=== PATIENT | female | born 1990 | race Caucasian/White ===

== ENCOUNTER 2019-01-07 13:59 | Emergency (ER) | payer MEDICAID ==
[~2019-01-07] VITALS: Ht 157.5 cm; Wt 56.8 kg
[2019-01-07] MEDS ORDERED: ibuprofen tablet 400 MG TABLET PO ONE (14:05)
--- NOTE | 2019-01-07 14:17 | NUR ---
PT MEDICATED FOR PAIN AND CURRENTLY WITH ANKLE ELEVATED AND ICE PACKS APPLIED.
[2019-01-07 15:08] VITALS: BP 113/65
== END 2019-01-07 15:25 | disposition home or self-care (01) ==
LOC: ER 14:00
DX: S93.491A Sprain of other ligament of right ankle, initial encounter (principal); X50.1XXA Overexertion from prolonged static or awkward postures, initial encounter; Y93.89 Activity, other specified; Y92.89 Other specified places as the place of occurrence of the external cause; Y99.8 Other external cause status
CPT/HCPCS: 29515; 73610; 99284

== ENCOUNTER 2019-03-12 20:50 | Emergency (ER) | payer MEDICAID ==
[~2019-03-12] VITALS: Ht 157.5 cm; Wt 54.0 kg
[2019-03-12] MEDS ORDERED: ketorolac tromethamine 15mg/ml inj. IM ONE (21:15)
[2019-03-12] MEDS ORDERED: orphenadrine citrate 60mg/2ml inj. IM ONE (21:15)
[2019-03-12 21:18] LABS: URINE HCG NEGATIVE (NEG)
[2019-03-12 21:22] LABS: CLARITY,URINE CLEAR (Clear); COLOR,URINE YELLOW (Yellow); GLUCOSE, URINE NEGATIVE (Neg); KETONES,URINE NEGATIVE (Neg); LEUKOCYTE ESTERASE ,URINE SMALL (Neg); NITRITES, URINE NEGATIVE (Neg); OCCULT BLOOD,URINE MODERATE (Neg); PROTEIN,URINE NEGATIVE (Neg); UROBILINOGEN,URINE 0.2 E.U/dL (0.2-1.0)
[2019-03-12 21:23] LABS: UA COLLECTION TYPE CLN CATCH MIDSTREAM
[2019-03-12 21:45] LABS: BACTERIA,URINE FEW /HPF (Neg); MUCUS STRANDS NONE SEEN /LPF (Neg); RBC,URINE 0-2 /HPF (0-2); SQUAMOUS EPITHELIAL CELL,UR NONE SEEN /LPF (FEW); WBC CLUMPS,URINE FEW /HPF (NEGATIVE)
[2019-03-12 22:06] LABS: ALANINE AMINOTRANSFERASE 25 U/L (12-78); ALBUMIN 4.3 G/DL (3.4-5.0); ALBUMIN/GLOBULIN RATIO 1.3 (1.1-1.5); ALKALINE PHOSPHATASE 43 IU/L (46-116); ANION GAP 10 (8-16); ASPARTATE AMINO TRANSFERASE 29 U/L (10-37); BILIRUBIN,TOTAL 0.8 MG/DL (0.1-1.0); BLOOD UREA NITROGEN 10 MG/DL (7-18); BUN/CREATININE RATIO 12.7 (6.6-38.0); CALCIUM 9.2 MG/DL (8.5-10.1); CHLORIDE 107 MMOL/L (99-107); CREATININE 0.79 MG/DL (0.40-0.90); GLUCOSE 92 MG/DL (70-104); POTASSIUM 3.7 MMOL/L (3.5-5.1); SODIUM 141 MMOL/L (135-145); TOTAL CARBON DIOXIDE 24.2 MMOL/L (24-32); TOTAL PROTEIN 7.6 G/DL (6.4-8.2); eGFR 85 ML/MIN
[2019-03-12] MEDS ORDERED: CEPH-572 PO (23:11)
[2019-03-12 23:14] VITALS: BP 115/70
[2019-03-12] MEDS ORDERED: cephalexin 250mg capsule PO ONE (23:20)
[2019-03-12 23:31] LABS: BASOPHILS # (AUTO) 0.1 X10'3 (0-0.2); BASOPHILS % (AUTO) 0.6 % (0-1); EOSINOPHILS # (AUTO) 0.2 X10'3 (0-0.9); HEMATOCRIT 39.1 % (35.0-45.0); HEMOGLOBIN 13.6 g/dl (12.0-16.0); LYMPHOCYTES # (AUTO) 2.3 X10'3 (1.1-4.8); LYMPHOCYTES % (AUTO) 26.6 % (21-51); MEAN CORPUSCULAR HEMOGLOBIN 32.5 PG (27.0-31.0); MEAN CORPUSCULAR HGB CONC 34.7 g/dL (33.0-36.5); MEAN CORPUSCULAR VOLUME 93.7 FL (78-98); MEAN PLATELET VOLUME 9.7 FL (7.4-10.4); MONOCYTES # (AUTO) 0.6 X10'3 (0-0.9); MONOCYTES % (AUTO) 6.9 % (2-12); NEUTROPHILS # (AUTO) 5.6 X10'3 (1.8-7.7); NEUTROPHILS % (AUTO) 63.9 % (42-75); PLATELET COUNT 214 X10'3 (140-440); RED BLOOD COUNT 4.17 X10'6 (4.20-5.60); RED CELL DISTRIBUTION WIDTH 13.4 % (11.5-14.5); WHITE BLOOD COUNT 8.8 X10'3 (4.5-11.0)
== END 2019-03-12 23:24 | disposition home or self-care (01) ==
LOC: ER 20:50
DX: N39.0 Urinary tract infection, site not specified (principal); Z98.890 Other specified postprocedural states; Z79.899 Other long term (current) drug therapy
CPT/HCPCS: 36415; 76775; 80053; 81001; 81025; 85025; 85610; 87077; 87088; 87186; 96372; 99284; J1885

== ENCOUNTER 2019-07-14 09:10 | Emergency (ER) | payer MEDICAID, OTHER ==
[~2019-07-14] VITALS: Ht 157.5 cm; Wt 54.5 kg
[2019-07-14 09:13] VITALS: BP 105/62
[2019-07-14] MEDS ORDERED: oseltamivir phos 75mg capsule PO ONE (09:15)
[2019-07-14] MEDS ORDERED: normal saline 1000ML IV soln IV ONE (09:15)
[2019-07-14] MEDS ORDERED: ketorolac trometh. 30mg/ml inj. IV ONE (09:15)
[2019-07-14] MEDS ORDERED: methylPREDNISolone sod succ 125mg/2ml vial IV ONE (09:15)
[2019-07-14] MEDS ORDERED: ALBU6.7H9 INH (09:48)
[2019-07-14] MEDS ORDERED: PRED20TA PO (09:48)
[2019-07-14] MEDS ORDERED: AMOX-422 PO (09:48)
[2019-07-14] MEDS ORDERED: TAM75C PO (09:48)
[2019-07-14] MEDS ORDERED: ONDA4TAB6 PO (09:48)
== END 2019-07-14 11:10 | disposition home or self-care (01) ==
LOC: ER 09:11
DX: J11.1 Influenza due to unidentified influenza virus with other respiratory manifestations (principal)
CPT/HCPCS: 96374; 96375; 99284; J1885; J2930; J7030

== ENCOUNTER 2019-10-08 05:57 | Day surgery (SDC) | payer MEDICAID ==
[2019-10-04 12:50] LABS: BASOPHILS % (AUTO) 0.5 % (0-1); EOSINOPHILS # (AUTO) 0.1 X10'3 (0-0.9); LYMPHOCYTES # (AUTO) 0.9 X10'3 (1.1-4.8); LYMPHOCYTES % (AUTO) 10.7 % (21-51); MEAN CORPUSCULAR HEMOGLOBIN 31.9 PG (27.0-31.0); MEAN CORPUSCULAR HGB CONC 33.5 g/dL (33.0-36.5); MEAN CORPUSCULAR VOLUME 95.2 FL (78-98); MEAN PLATELET VOLUME 9.2 FL (7.4-10.4); MONOCYTES # (AUTO) 0.5 X10'3 (0-0.9); MONOCYTES % (AUTO) 5.7 % (2-12); NEUTROPHILS # (AUTO) 6.9 X10'3 (1.8-7.7); NEUTROPHILS % (AUTO) 82.1 % (42-75); PRE OP HEMATOCRIT 44.4 % (35.0-45.0); PRE OP HEMOGLOBIN 14.8 g/dL (12.0-16.0); PRE OP PLATELET COUNT 221 X10'3 (140-440); RED BLOOD COUNT 4.66 X10'6 (4.20-5.60); RED CELL DISTRIBUTION WIDTH 13.8 % (11.5-14.5)
[2019-10-04 12:52] LABS: HCG SERUM QL NEGATIVE
[2019-10-04 13:00] LABS: ALBUMIN 4.5 G/DL (3.4-5.0); ALBUMIN/GLOBULIN RATIO 1.3 (1.1-1.5); ALKALINE PHOSPHATASE 54 IU/L (46-116); BLOOD UREA NITROGEN 11 MG/DL (7-18); BUN/CREATININE RATIO 13.8 (6.6-38.0); CALCIUM 9.1 MG/DL (8.5-10.1); CHLORIDE 107 MMOL/L (99-107); PRE OP ALT 18 U/L (30-65); PRE OP ANION GAP 9 (8-16); PRE OP AST 17 U/L (10-37); PRE OP BILIRUB, TOTAL 1.3 MG/DL (0.0-1.0); PRE OP GLUCOSE 79 MG/DL (70-104); PRE OP POTASSIUM 3.9 MMOL/L (3.4-5.1); PRE OP SODIUM 140 MMOL/L (135-145); TOTAL CARBON DIOXIDE 24.5 MMOL/L (24-32); TOTAL PROTEIN 7.9 G/DL (6.4-8.2); eGFR 84 ML/MIN
[~2019-10-08] VITALS: Ht 157.5 cm; Wt 59.0 kg
[~2019-10-08 05:57] MED LIST: NO HOME MEDS; ceFOXitin 2GM-NS 100mL ADDvant 100 ML IV ONE; famotidine 20mg tablet PO ONE; ringers solution, lacted 1,000 ML IV SCH
[2019-10-08 06:00] VITALS: BP 108/78
[2019-10-08] MEDS ORDERED: LIDOcaine 1% (10mg/ml) 2ml vial ONE (06:19)
[2019-10-08 06:45] LABS: CLARITY,URINE CLEAR (Clear); COLOR,URINE YELLOW (Yellow); GLUCOSE, URINE NEGATIVE (Neg); KETONES,URINE NEGATIVE (Neg); LEUKOCYTE ESTERASE ,URINE NEGATIVE (Neg); NITRITES, URINE NEGATIVE (Neg); OCCULT BLOOD,URINE TRACE-INTACT (Neg); PH,URINE 5.5 (4.8-8.0); PROTEIN,URINE NEGATIVE (Neg); UROBILINOGEN,URINE 0.2 E.U/dL (0.2-1.0)
[2019-10-08 06:46] LABS: UA COLLECTION TYPE CLN CATCH MIDSTREAM
[2019-10-08 06:58] LABS: BACTERIA,URINE FEW /HPF (Neg); RBC,URINE 0-2 /HPF (0-2); SQUAMOUS EPITHELIAL CELL,UR FEW /LPF (FEW); WBC,URINE 0-4 /HPF (0-4)
[2019-10-08 06:59] LABS: PRE OP PROTIME 10.8 SECONDS (9.0-12.0)
[2019-10-08] MEDS ORDERED: ringers solution, lacted 1,000 ML IV SCH (07:07)
[2019-10-08] MEDS ORDERED: morphine 2 MG/ML inj. syringe IV PRN (07:10)
[2019-10-08] MEDS ORDERED: labetalol 20mg/4ml (5mg/ml) syringe IV PRN (07:10)
[2019-10-08] MEDS ORDERED: ondansetron/PF 4mg/2ml inj IV PRN (07:10)
[2019-10-08] MEDS ORDERED: fentaNYL/PF 50MCG/1 ML 2ML syringe IV PRN ×2 (07:10)
[2019-10-08] MEDS ORDERED: hydrALAZINE 20mg/ml inj. IV PRN (07:10)
[2019-10-08] MEDS ORDERED: morphine 4 MG/ML inj SYRINge IV PRN (07:10)
[2019-10-08] MEDS ORDERED: midazolam 2 mg/2 ml injection ONE (07:11)
[2019-10-08] MEDS ORDERED: LIDOcaine 2% (20mg/ml) 5ml vial ONE (07:11)
[2019-10-08] MEDS ORDERED: fentaNYL/PF 50MCG/1 ML 2ML syringe ONE (07:11)
[2019-10-08] MEDS ORDERED: propofol inj 20 ML IV ONE (07:11)
[2019-10-08] MEDS ORDERED: dexamethasone sod phosphate 4mg/ml inj. ONE (07:12)
[2019-10-08] MEDS ORDERED: ondansetron/PF 4mg/2ml inj ONE (07:12)
[2019-10-08] MEDS ORDERED: sevoflurane 250ml liquid IH ONE (07:17)
[2019-10-08 07:40] VITALS: BP 105/64
--- NOTE | 2019-10-08 07:40 | NUR ---
Received from OR via [facility] , accompanied by Anesthesiologist GHISLAINE and report given by Anesthesiolgist. PATIENT WITH 20G PIV IN RIGHT UE RUNNING LR AT 100. DENIES PAIN. VSS. 10L MASK ON WITH 100% SATURATIONS. Addendum: 10/08/19 at 0757 by Rudy Carranza RN, RN Amended: Links added.
[2019-10-08 07:50] VITALS: BP 108/58
[2019-10-08 08:00] VITALS: BP 97/68
[2019-10-08 08:10] VITALS: BP 99/70
--- NOTE | 2019-10-08 08:20 | NUR ---
All dc criteria for discharge home has been met. IV taken out without complications. All questions answered regarding dc paperwork. Vss. Significant other present to take patient home. Dressings cdi and vital signs stable. Taken out via wheelchair to personal vehicle where patient taken home by family/friend. DRESSED SELF AND SIG OTHER DROVE PATIENT HOME. Addendum: 10/08/19 at 0835 by Rudy Carranza RN, RN Amended: Links added.
== END 2019-10-08 08:20 | disposition home or self-care (01) ==
LOC: PAS 05:57
PROVIDERS: ATTEND Obstetrics & Gynecology
DX: T83.32XA Displacement of intrauterine contraceptive device, initial encounter (principal); Y83.8 Other surgical procedures as the cause of abnormal reaction of the patient, or of later complication, without mention of misadventure at the time of the procedure; Z88.2 Allergy status to sulfonamides; Z11.59 Encounter for screening for other viral diseases
CPT/HCPCS: 36415; 58301; 80053; 81001; 82948; 84703; 85025; 85610; 85730; 86885; 86900; 86901; 87635; J0694; J1100; J2001; J2250; J2405; J2704; J3010; J7030; A4355; A4618; J7120